=== PATIENT | male | born 1940 | race Caucasian/White ===

== ENCOUNTER 2016-08-07 19:30 | Emergency (ER) | payer MEDICARE, BC ==
[2016-08-07 19:34] VITALS: BP 134/81; PULSE 94; RESP 18; TEMP 98.5; O2SAT 95
[2016-08-07] MEDS ORDERED: SIMV20TA PO (19:46)
[2016-08-07] MEDS ORDERED: LISI20TA3 PO (19:46)
[2016-08-07] MEDS ORDERED: KETOROLAC TROMETHAMINE 60 MG/2 ML (IM) VIAL IM ONE (21:00)
--- NOTE | 2016-08-07 21:00 | PD ---
HPI Chief Complaint: Musculoskeletal Complaint Time Seen by Provider: 20:57 Travel History International Travel<30 days: No Contact w/Intl Traveler<30days: No Traveled to known affect area: No History of Present Illness HPI Patient comes in complaining of possible gouty arthritis flare. Patient is having pain in his right first metatarsophalangeal joint for the past 2 weeks. Patient is been applying ice that helped some. Patient denies doing anything else for this. Patient reports he's had gout in the past and this feels similar. Denies any known trauma. Denies any numbness or tingling. Denies any radiation of the pain. PFSH Past Medical History High Cholesterol: Yes Hypertension: Yes Tetanus Vaccination: < 5 Years Influenza Vaccination: Yes Past Surgical History Eye Surgery: Yes (BILAT CATARACT) Social History Alcohol Use: Yes (WINE OCC) Tobacco Use: No Substance Use: No Allergies-Medications (Allergen,Severity, Reaction): Coded Allergies: No Known Allergies (Unverified , 08/07/16) Reported Meds & Prescriptions Reported Meds & Active Scripts Active Indomethacin 50 Mg Cap 50 Mg PO Q8HR PRN Take with food, milk, or antacids to decrease stomach adverse effects. Reported Lisinopril-Hctz 20-25 Mg Tab 1 Tab PO DAILY Simvastatin 20 Mg Tab 20 Mg PO DAILY Review of Systems Except as stated in HPI: all other systems reviewed are Neg Physical Exam Narrative GENERAL: Well-developed, overly nourished, in no acute distress, and non-ill appearing. SKIN: Focused skin assessment warm and dry. There is erythematous over the right first metatarsophalangeal joint that is tender to palpation. Is minimally febrile. There is no crepitus, induration, or drainage. Appears consistent with gout. HEAD: Atraumatic. Normocephalic. EYES: Pupils equal and round. EOMI. No scleral icterus. No injection or drainage. ENT: No nasal bleeding or discharge. Mucous membranes pink and moist. NECK: Trachea midline. Supple. No nuclear rigidity. RESPIRATORY: No accessory muscle use. No respiratory distress. MUSCULOSKELETAL: No obvious deformities. No clubbing. No cyanosis. No edema. Full range of motion. NEUROLOGICAL: Awake and alert. No obvious cranial nerve deficits. Motor grossly within normal limits. Normal speech. PSYCHIATRIC: Appropriate mood and affect; insight and judgment normal. Data Data Last Documented VS Vital Signs Date Time Temp Pulse Resp B/P Pulse Ox O2 Delivery O2 Flow Rate FiO2 08/07/16 19:34 98.5 94 18 134/81 95 Orders Ketorolac Inj (Toradol Inj) (08/07/16 21:00) MDM Medical Decision Making Medical Screen Exam Complete: Yes Emergency Medical Condition: Yes Differential Diagnosis Gout, arthritis, fracture, strain, contusion, other Narrative Course The patient appears to have acute gouty arthritis involving the first metatarsal phalangeal joint of the right foot. There is no evidence to suggest infectious, septic joint at this time. There was no significant erythema, heat, swelling or fluctuance. The patient has had no distal or local trauma, cuts or abrasions. There has been no fever. The patient has had similar episodes and has a history of gout. There is no trauma to suspect contusion, strain or fracture. There is no clinical evidence to suggest bursitis, tendonitis, osteoarthritis, Rheumatoid arthritis, or septic arthritis. The patient was placed on NSAID medication and the patient was instructed on ice packs as well. The patient was instructed to follow-up with podiatry. The patient agreed with plan. Patient in no obvious distress upon re-evaluation. Patient was asked if they wanted to speak to my attending, which the patient did not wish to do at this time. Any questions/concerns in reference to patient diagnosis/condition discussed and clarified prior to patient's discharge. Reinforced sheer importance of close follow up with patient's primary physician or primary care clinic and/or sugar cane planter. Instructed patient to return to ED immediately, if symptoms return/worsen. Pt showed understanding of above instructions. Further instructions and recommendations were detailed in discharge paperwork. Pt ambulated without difficulty out of ED at discharge. Diagnosis Primary Impression: Gout Qualified Code: M10.9 - Acute gout of right foot, unspecified cause Referrals: [facility] [place] [facility] Patient Instructions: General Instructions, Gout (ED) Additional Instructions: Follow-up with your primary care physician and/or sugar cane planter in 3-5 days for reevaluation. Take all medication as prescribed. Apply ice packs affect area 20 minutes per hour as needed for pain. Return to the emergency department if symptoms get worse. Med/Other Pt SpecificInfo: Prescription(s) given Scripts Indomethacin 50 Mg Cap50 Mg PO Q8HR PRN (PAIN SCALE 1 TO 10) #15 CAP Ref 0 Take with food, milk, or antacids to decrease stomach adverse effects. Prov:William Levin MD 08/07/16 Disposition: 01 DISCHARGE HOME Condition: Abimael Douglas Aug 07, 2016 21:00
[2016-08-07] MEDS ORDERED: INDO50CA PO (21:01)
== END 2016-08-07 21:08 | disposition home or self-care (01) ==
LOC: PHEFT 19:30
DX: M10.9 Gout, unspecified (principal); E78.00 Pure hypercholesterolemia, unspecified; I10 Essential (primary) hypertension
CPT/HCPCS: 96372; 99283; J1885